=== PATIENT | male | born 1950 | race Caucasian/White ===

== ENCOUNTER 2016-04-16 11:42 | Outpatient (CLI) ==
[2014-12-07 19:01] VITALS: BMI 30.4
--- NOTE | 2016-04-16 14:14 | DI ---
EXAM: Right hip two-view HISTORY: Low back pain COMPARISON: None FINDINGS: No fracture or dislocation. Mild narrowing right hip joint. Sclerosis about the right sac roiliac joint. No focal soft tissue abnormality. IMPERSSION: 1. No fracture or dislocation. 2. Mild osteoarthritis right hip. 3. Right sacroiliitis suggested.
--- NOTE | 2016-04-16 14:19 | DI ---
EXAM: Lumbar spine five views, including oblique views HISTORY: Low back pain COMPARISON: None TECHNIQUE: Five views lumbar spine were performed including oblique views FINDINGS: Right oblique view limited due to positioning. There is sclerosis of the right and possib ly the left sacroiliac joint. Sacral arcuate lines intact. Sacroiliac joints intact. Vertebral jasen dies are normal in height. Multilevel marginal osteophyte formation. Moderate to severe interverte bral disc is narrowing L5-S1. Multilevel facet arthrosis. Pars defects at L5 with 1 cm anterolisth esis of L5 on S1. Minimal retrolisthesis L1 on L2. Atherosclerotic vascular calcification. IMPRESSION: 1. Bilateral pars defects L5 with 1 cm anterolisthesis of L5 on S1. 2. Chronic discogenic degenerative disease and facet arthrosis, greatest at L5-S1. 3. Right and possibly left sacroiliitis suggested
== END 2016-04-16 11:43 | disposition home or self-care (01) ==
LOC: RAD 11:42
PROVIDERS: ATTEND General Practice
DX: M54.5 Low back pain (principal); M25.551 Pain in right hip

== ENCOUNTER → 2016-04-17 | Outpatient (POV) ==
[2014-12-07 19:01] VITALS: BMI 30.4
== END ==
LOC: OUTPT 00:01
PROVIDERS: ATTEND Otolaryngology
DX: R42 Dizziness and giddiness (principal)
CPT/HCPCS: 92557; 92567

== ENCOUNTER 2016-10-25 16:43 | Outpatient (CLI) ==
[2014-12-07 19:01] VITALS: BMI 30.4
[2016-10-25 16:52] LABS: ADD URINE MICROSCOPIC NO; BILIRUBIN,URINE Negative (NEGATIVE); KETONES,URINE Negative (NEGATIVE); LEUKOCYTE ESTERASE ,URINE Negative (NEGATIVE); NITRITE,URINE Negative (NEGATIVE); PH,URINE 5.5 (5-9); PROTEIN,URINE Negative (NEGATIVE); URINE, BLOOD Negative (NEGATIVE)
[2016-10-25 17:04] LABS: ALBUMIN 3.9 g/dL (3.4-5.0); ALBUMIN/GLOBULIN RATIO 1.05; ANION GAP 15.7; BILIRUBIN,TOTAL 0.62 mg/dL (0.00-1.20); BUN/CREATININE RATIO 15.55; CALCIUM 9.7 mg/dL (8.2-10.2); CHOL/HDL RATIO 7.2 (4.5-6.4); CREATININE 0.9 mg/dL (0.60-1.10); POTASSIUM 3.7 mmol/L (3.5-5.1); TOTAL PROTEIN 7.6 g/dL (5.8-8.1)
== END 2016-10-25 16:44 | disposition home or self-care (01) ==
LOC: LAB 16:43
PROVIDERS: ATTEND General Practice
DX: I10 Essential (primary) hypertension (principal); Z79.899 Other long term (current) drug therapy; Z12.5 Encounter for screening for malignant neoplasm of prostate
CPT/HCPCS: 36415; 80053; 80061; 81001

== ENCOUNTER 2016-11-15 11:30 | Outpatient (CLI) ==
[2014-12-07 19:01] VITALS: BMI 30.4
[2016-11-15 12:49] LABS: BASOPHILS # (AUTO) 0.1 K/uL (0-0.2); BASOPHILS % (AUTO) 0.7 % (0.0-3.0); EOSINOPHILS # (AUTO) 0.6 K/ul (0.0-0.7); HEMATOCRIT 40.7 % (42.0-52.0); HEMOGLOBIN 13.8 g/dl (14.0-18.0); IMMATURE GRANULOCYTE % (AUTO) 0.4 % (0.0-5.0); LYMPHOCYTES # (AUTO) 2.3 K/uL (0.60-3.4); LYMPHOCYTES % (AUTO) 27.2 (10.0-50.0); MEAN CORPUSCULAR HEMOGLOBIN 30.9 pg (27.0-31.0); MEAN CORPUSCULAR HGB CONC 33.9 (31.8-35.4); MEAN CORPUSCULAR VOLUME 91.3 fl (80.0-94.0); MONOCYTES # (AUTO) 0.7 K/uL (0.4-2.0); MONOCYTES % (AUTO) 8.5 (0-10); NEUTROPHILS # (AUTO) 4.7 K/ul (2.0-6.9); NEUTROPHILS % (AUTO) 56.2; PLATELET COUNT 215 10^3/uL (140-440); RED BLOOD COUNT 4.46 10^6/ul (4.70-6.10); WHITE BLOOD COUNT 8.32 K/ul (4.2-10.2)
--- NOTE | 2016-11-15 15:20 | DI ---
EXAM: Radiographs, pelvis and bilateral hip HISTORY: Pelvic and perineal pain. COMPARISON: None available. TECHNIQUE: Three views. FINDINGS: Bone mineralization is normal. There is no fracture or dislocation. The joint spaces ar e maintained although mild subchondral sclerosis and subchondral cystic change noted within the supe rior right acetabulum. Lower lumbar degenerative changes are incompletely imaged. Osteoarthritic c hanges of both sacroiliac joints noted as well. No focal soft tissue abnormality is seen. IMPRESSION: Mild right hip osteoarthritis.
--- NOTE | 2016-11-15 15:22 | DI ---
EXAM: Radiographs, lumbar spine HISTORY: Low back pain. COMPARISON: 04/16/2016. TECHNIQUE: Five views. FINDINGS: Bilateral spondylolysis at L5 noted with approximately 1.3 cm anterolisthesis of L5 on S1 . There is moderate to severe loss of disc height at L5-S1. Alignment is otherwise normal. Verteb ral body heights are maintained. Disc heights are otherwise normal. Mild multilevel endplate osteo phyte formation and facet arthropathy noted. Sacral arcuate lines are intact. Atherosclerotic calc ifications seen in the aorta. Right upper quadrant calcification may relate to the gallbladder. IMPRESSION: 1. Bilateral spondylolysis at L5 with increased anterolisthesis of L5 on S1 since the prior examina tion. 2. Stable multilevel degenerative changes
== END 2016-11-15 11:31 | disposition home or self-care (01) ==
LOC: LAB 11:30 → RAD 11:31
PROVIDERS: ATTEND General Practice
DX: M54.5 Low back pain (principal); R10.2 Pelvic and perineal pain; M25.551 Pain in right hip; I10 Essential (primary) hypertension; R73.9 Hyperglycemia, unspecified
CPT/HCPCS: 36415; 83036; 85025

== ENCOUNTER 2017-01-24 12:53 | Outpatient (CLI) | payer OTHER ==
[2014-12-07 19:01] VITALS: BMI 30.4
== END 2017-01-24 12:54 | disposition home or self-care (01) ==
LOC: LAB 12:53
PROVIDERS: ATTEND General Practice
DX: E11.9 Type 2 diabetes mellitus without complications (principal)
CPT/HCPCS: 36415; 82947; 83036

== ENCOUNTER 2017-05-31 12:39 | Outpatient (CLI) ==
[2014-12-07 19:01] VITALS: BMI 30.4
== END 2017-05-31 12:40 | disposition home or self-care (01) ==
LOC: LAB 12:39
PROVIDERS: ATTEND General Practice
DX: E11.9 Type 2 diabetes mellitus without complications (principal); I10 Essential (primary) hypertension
CPT/HCPCS: 36415; 80061; 80069; 83036

== ENCOUNTER 2017-09-26 10:17 | Outpatient (CLI) ==
[2014-12-07 19:01] VITALS: BMI 30.4
== END 2017-09-26 10:18 | disposition home or self-care (01) ==
LOC: FCC-LAB 10:17
PROVIDERS: ATTEND General Practice
DX: E11.9 Type 2 diabetes mellitus without complications (principal); I10 Essential (primary) hypertension; Z79.899 Other long term (current) drug therapy
CPT/HCPCS: 36415; 80053; 80061; 81001; 83036; 85025